=== PATIENT | male | born 1985 | race African-American/Black ===

== ENCOUNTER → 2017-01-16 | Outpatient (CLI) | payer BC ==
[~2017-01-16] MED LIST: IOHEXOL 300 MG/ML 100ML VIAL. IV ONE; TRIA10.8 NS
--- NOTE | 2017-01-16 10:36 | KCIC ---
Indication: Gross hematuria. Pre and post intravenous contrast axial imaging of the abdomen and pelvis was performed. One or more of the following individualized dose reduction techniques were utilized for this examination: 1. Automated exposure control 2. Adjustment of the mA and/or kV according to patient size 3. Use of iterative reconstruction technique No prior studies are available for comparison. The lung bases are clear. Liver and gallbladder are unremarkable. The pancreas and spleen are unremarkable. No adrenal mass is identified. No renal calculi or hydronephrosis is identified. The ureters are normal in course and caliber. No ureteral calculi are seen. The bladder is unremarkable. The aorta is nonaneurysmal. There is no ascites. The small and large bowel loops are normal caliber. The appendix is unremarkable. No abdominal or pelvic lymphadenopathy is seen. The bony structures are nonacute. IMPRESSION: Unremarkable pre and postcontrast CT of the abdomen and pelvis. Electronically signed by: Earl Adam MD (01/16/2017 10:33 AM) [id number]
== END | disposition home or self-care (01) ==
LOC: KCIC CT 08:45
PROVIDERS: ATTEND Urology
DX: R31.0 Gross hematuria (principal)
CPT/HCPCS: 74178; Q9967